=== PATIENT | female | born 1975 | race Caucasian/White ===

== ENCOUNTER 2019-01-27 10:38 | Emergency (ER) | payer OTHER ==
[2019-01-27] MEDS: LIDOCAINE 2%/EPI MPF (SDV) 20 ML VIAL INJ (12:27)
[2019-01-27] MEDS: ONDANSETRON (ODT) 4 MG TAB ODT (12:33)
[2019-01-27] MEDS: HYDROCODONE/APAP (10/325) TAB PO (12:34)
== END 2019-01-27 14:28 | disposition home or self-care (01) ==
LOC: FTE 14:28
DX: N75.1 Abscess of Bartholin's gland (principal)
CPT/HCPCS: 56420; 99283-25